=== PATIENT | male | born 1950 | race Caucasian/White ===

== ENCOUNTER 2016-10-27 23:48 | Emergency (ER) | payer BC ==
[~2016-10-27] VITALS: Ht 182.9 cm; Wt 88.6 kg
[~2016-10-27 23:48] MED LIST: AMIT10TA6 PO; ASPEC325 PO; ASPI-427 PO; COEN1CAP37 PO; FOLI800T PO; KRIL1000 PO; PENI-73 PO; PRAV20TA PO
[2016-10-27 23:53] VITALS: TEMP 36.6; Ht 182.9 cm; Wt 88.6 kg
[2016-10-28] MEDS ORDERED: ASPI325T39 PO (00:15)
[2016-10-28] MEDS ORDERED: TRAZ100T29 PO (00:16)
[2016-10-28] MEDS ORDERED: AZITTAB PO (00:16)
[2016-10-28] MEDS ORDERED: LORAZEPAM 2 MG/ML 1 ML VIAL IV STA (00:25)
[2016-10-28] MEDS ORDERED: BENZONATATE 100MG CAP PO ONE ×3 (00:30→03:15)
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
[2016-10-28 00:45] LABS: HEMATOCRIT 41.4 % (42-52); MEAN CELL VOLUME 90.6 fL (80-100); MEAN CORPUSCULAR HEMOGLOBIN 32.8 pg (25-34); MEAN CORPUSCULAR HGB CONC 36.2 g/dl (32-36); MEAN PLATELET VOLUME 9.5 fL (7.4-10.4); PLATELET COUNT 189 K/uL (130-400); RED BLOOD COUNT 4.57 M/uL (4.7-6.1); WHITE BLOOD COUNT 7.11 K/uL (4.8-10.8)
[2016-10-28 01:01] LABS: BUN/CREATININE RATIO 15.6 (10-20); CALCIUM 9.2 mg/dl (8.5-10.1); CREATININE 1.2 mg/dl (0.60-1.40); POTASSIUM 4.5 mmol/L (3.5-5.1)
[2016-10-28] MEDS ORDERED: DiphenhydrAMINE HCL 50 MG/ML VIAL IV STA (01:26)
[2016-10-28] MEDS ORDERED: ATV/1 PO (02:51)
[2016-10-28] MEDS ORDERED: BENZ100C18 PO (02:51)
[2016-10-28] MEDS ORDERED: ATIVAN 1MG HOMEPACK ONE (03:10)
[2016-10-28] MEDS ORDERED: ATIVAN 1MG HOMEPACK PO ONE (03:15)
[2016-10-28 03:21] VITALS: BP 147/88; PULSE 81; O2SAT 98
--- NOTE | 2016-10-28 08:38 | DIAGNOSTIC IMAGING REPORT ---
TWO VIEW CHEST CLINICAL HISTORY: Cough and dyspnea. Anxiety. FINDINGS: PA and lateral chest radiographs are compared to study dated 04/01/2014. The cardiomediastinal silhouette is unremarkable. There is mild atherosclerotic calcification of the thoracic aorta. Chronic interstitial thickening is unchanged. The lungs and pleural spaces are otherwise clear. There is no pneumothorax. The bony thorax appears intact. IMPRESSION: No active disease in the chest. Electronically signed by: Camden Moe M.D. 10/28/2016 8:36 AM
== END 2016-10-28 03:05 | disposition home or self-care (01) ==
LOC: C.EDB 23:49 → C.EDA 10-28 03:05
DX: F41.9 Anxiety disorder, unspecified (principal); Z72.820 Sleep deprivation; R05 Cough; Z79.82 Long term (current) use of aspirin

== ENCOUNTER 2016-10-31 00:43 | Emergency (ER) | payer BC ==
[~2016-10-31] VITALS: Ht 182.9 cm; Wt 84.0 kg
[~2016-10-31 00:43] MED LIST changes: -AMIT10TA6 PO; -ASPEC325 PO; -ASPI-427 PO; +ASPI325T39 PO; +ATV/1 PO; +AZITTAB PO; +BENZ100C18 PO; -COEN1CAP37 PO; -FOLI800T PO; -KRIL1000 PO; +TRAZ100T29 PO
[2016-10-31 00:57] VITALS: TEMP 36.7; Ht 182.9 cm; Wt 84.0 kg
[2016-10-31] MEDS ORDERED: SODIUM CHLORIDE 0.9% 1000ML 1,000 ML IV STA (01:21)
[2016-10-31] MEDS ORDERED: LORAZEPAM 2 MG/ML 1 ML VIAL IV STA ×3 (01:21→02:49)
[2016-10-31] MEDS ORDERED: DiphenhydrAMINE HCL 50 MG/ML VIAL IV STA (01:21)
[2016-10-31 02:21] LABS: THYROID STIMULATING HORMONE 3.4 uIu/ml (0.300-4.500)
[2016-10-31] MEDS ORDERED: HYDR25CA PO (03:48)
--- NOTE | 2016-10-31 03:48 | EMERGENCY ROOM VISIT NOTE ---
History Report prepared by Mesha: Derrick Douglass Under the Supervision of: Dr. Martín Mccracken M.D. First contact with patient: 01:05 Chief Complaint: ANXIETY Stated Complaint: ANXIETY History of Present Illness The patient is a 65 year old male who presents to the Emergency Room with complaints of recurrent anxiety for the past three weeks. The patient feels like he cannot breath. He also feels itchy all over his body and has trouble sleeping. The patient was in the ED four days ago for an anxiety attack that included the same symptoms. The patient has been taking Ativan and Benadryl, which seemed to help last time he was in the ED. The patient had Ativan at 2230 tonight, which didn't help. He did not have Benadryl tonight. The patient denies urinary retention or swelling of the extremities. The patient has tried breathing exercises which do not help with his anxiety. As per the patient's , he paces around the house. She has not experienced itchiness. He does not have a rash. The patient's first anxiety attack was four years ago. He has had them periodically since then. The patient was diagnosed with skin cancer three weeks ago, which he is concerned about and may be contributing to his anxiety. He does not have thyroid disease. He has not had his thyroid levels checked recently. The patient rarely drinks alcohol and does not use drugs. He has never been diagnosed with liver disease. Source of History: patient, spouse/significant other Onset: three weeks Position: other (psyche) Quality: other (anxiety) Timing: other (recurrent) Associated Symptoms: + SOB, No rash, No urinary symptoms Note: + Itchiness. Review of Systems See HPI for pertinent positives & negatives. A total of 10 systems reviewed and were otherwise negative. Past Medical & Surgical Medical Problems: (1) Anxiety Family History Patient reports no known family medical history. Social History Smoking Status: Never Smoker Marital Status: Occupation Status: employed Current/Historical Medications Scheduled Aspirin (Aspirin Ec), 325 MG PO DAILY Azithromycin (Zithromax Z-Lex), 1 PKT PO UD Hydroxyzine Pamoate (Vistaril), 1-2 CAP PO HS Lorazepam (Ativan), 1 MG PO Q6H Penicillin V Potassium (Veetids), 250 MG PO BID Pravastatin Sodium (Pravachol), 20 MG PO DAILY Trazodone Hcl (Trazodone), 200 MG PO HS Allergies Coded Allergies: No Known Allergies (Unverified , 10/31/16) Physical Exam Vital Signs Date Time Temp Pulse Resp B/P Pulse Ox O2 Delivery O2 Flow Rate FiO2 10/31/16 03:53 68 16 146/90 96 10/31/16 02:25 69 20 149/82 96 Room Air 10/31/16 00:57 36.7 85 20 154/91 96 Room Air Physical Exam GENERAL: Patient is anxious appearing in moderate distress. HEENT: No acute trauma, normocephalic atraumatic, mucous membranes moist, no nasal congestion, no scleral icterus. NECK: No stridor, no adenopathy, no meningismus, trachea is midline. LUNGS: No dyspnea. Clear to auscultation and equal bilaterally. No wheeze, no rhonchi. HEART: Regular rate and rhythm. No murmurs, rubs, gallops appreciated. ABDOMEN: Soft, nontender, bowel sounds positive, no masses appreciated, no peritonitis. BACK: No midline tenderness, no CVA tenderness EXTREMITIES: Normal motion all extremities, no cyanosis, no edema. NEUROLOGIC: Alert and oriented, no acute motor or sensory deficits, no focal weakness, cranial nerves grossly intact. SKIN: No rash, no jaundice, no diaphoresis. PSYCH: Denies suicidal or homicidal ideations. Medical Decision & Procedures Laboratory Results Test 10/31/16 01:35 Thyroid Stimulating Hormone (TSH) 3.400 uIu/ml (0.300-4.500) Free Thyroxine 1.25 ng/dl (0.80-1.60) Laboratory results as reviewed by me. Medications Administered Medications (Trade) Dose Ordered Sig/Rafi Route Start Time Stop Time Status Last Admin Dose Admin Sodium Chloride (Nss 1000ml) 1,000 ml @ 999 mls/hr Q1H1M STAT IV 10/31/16 01:21 10/31/16 02:21 DC 10/31/16 01:38 999 MLS/HR Diphenhydramine HCl (Benadryl Inj) 50 mg NOW STAT IV 10/31/16 01:21 10/31/16 01:22 DC 10/31/16 01:38 50 MG Lorazepam (Ativan Inj) 1 mg NOW STAT IV 10/31/16 01:21 10/31/16 01:22 DC 10/31/16 01:38 1 MG Lorazepam (Ativan Inj) 1 mg NOW STAT IV 10/31/16 02:14 10/31/16 02:15 DC 10/31/16 02:22 1 MG Lorazepam (Ativan Inj) 1 mg NOW STAT IV 10/31/16 02:49 10/31/16 02:50 DC 10/31/16 02:57 1 MG ED Course 0106: The patient was evaluated in room B6. A complete history and physical exam was performed. 0121: Ativan 1 mg IV, Benadryl 50 mg IV, NSS 1000 ml @ 999 mls/hr. 0214: Ativan 1 mg IV. 0249: Ativan 1 mg IV. 0320: The patient is still shaking. 0350: Reevaluated the patient. Discussed results and discharge instructions: He verbalized understanding and agreement. The patient is ready for discharge. Medical Decision Differential: Mood Disorder, Overdose, Infectious, Electrolyte Abnormality, Cardiac, Hepatic, Endocrine, Toxicologic, Neurologic, amongst other pathologies entertained. 65 yr old male arrives for evaluation of acute anxiety. Ongoing for several weeks and makes clear that this is chronic issue just worsened because not working as much and just had left ear skin cancer removed. He has clearly been on vast number of different medications for this over the years. Given Ativan/ Benadryl as previously had received these a few days earlier though this time with akathisia of his legs (which was already going on prior to medications though worsened). Likely Benadryl reaction. Given several rounds of ativan with patient sleeping comfortably but when awoken and asked how he feels legs start shaking again. While he seems upset by this I do not feel there is really much further treatment as he has had large amount of ativan and falls asleep very easily even while talking to his . Extensive labs done a few days ago and TSH today unremarkable. This seems very much psychiatric in nature. Has PCP appointment later this morning. Case management is trying to help set up psych evaluation. Impression Primary Impression: Anxiety Additional Impression: Akathisia Scribe Attestation The scribe's documentation has been prepared under my direction and personally reviewed by me in its entirety. I confirm that the note above accurately reflects all work, treatment, procedures, and medical decision making performed by me. Departure Information Dispostion Home / Self-Care Prescriptions Hydroxyzine Pamoate (VISTARIL) 25 Mg Cap 1-2 CAP PO HS, #20 CAP 1 Refill Prov: Martín Mccracken M.D. 10/31/16 Referrals No Doctor, Assigned (PCP) Forms HOME CARE DOCUMENTATION FORM, IMPORTANT VISIT INFORMATION Patient Instructions A Signature Page, Anxiety Body Response, [facility]
[2016-10-31 03:53] VITALS: BP 146/90; PULSE 68; O2SAT 96
== END 2016-10-31 03:52 | disposition home or self-care (01) ==
LOC: C.EDB 00:43
DX: F41.9 Anxiety disorder, unspecified (principal); G25.71 Drug induced akathisia; R06.02 Shortness of breath; Z79.82 Long term (current) use of aspirin; Z79.899 Other long term (current) drug therapy

== ENCOUNTER → 2016-11-16 | Outpatient (CLI) | payer BC ==
[~2016-11-16] MED LIST changes: -ATV/1 PO; -BENZ100C18 PO; +HYDR25CA PO
== END | disposition home or self-care (01) ==
LOC: C.CPL 08:18
PROVIDERS: ATTEND Psychiatry & Neurology Psychiatry
DX: Z79.899 Other long term (current) drug therapy (principal)

== ENCOUNTER → 2017-01-25 | Outpatient (CLI) | payer BC ==
[2017-01-25 12:52] LABS: ALT/SGPT 24 U/L (12-78); AST/SGOT 19 U/L (15-37); BLOOD UREA NITROGEN 13 mg/dl (7-18); BUN/CREATININE RATIO 10.7 (10-20); CALCIUM 8.9 mg/dl (8.5-10.1); CARBON DIOXIDE 31 mmol/L (21-32); CHLORIDE 107 mmol/L (98-107); CHOLESTEROL 143 mg/dl (0-200); GLUCOSE 92 mg/dl (70-99); POTASSIUM 4.4 mmol/L (3.5-5.1); SODIUM 140 mmol/L (136-145)
[2017-01-25 12:57] LABS: ALB/GLOB RATIO 1.1 (0.9-2); ALKALINE PHOSPHATASE 59 U/L (45-117); CHOLESTEROL/HDL RATIO 3.3; HDL CHOLESTEROL 43 mg/dl; LDL CHOLESTEROL CALCULATED 77 mg/dl; TRIGLYCERIDES 116 mg/dl (0-150); VERY LOW DENSITY LIPOPROT CALC 23 mg/dl
== END | disposition home or self-care (01) ==
LOC: C.LABBFT 09:02
PROVIDERS: ATTEND Nurse Practitioner
DX: E55.9 Vitamin D deficiency, unspecified (principal); E78.00 Pure hypercholesterolemia, unspecified; Z12.5 Encounter for screening for malignant neoplasm of prostate

== ENCOUNTER → 2017-08-10 | Outpatient (CLI) | payer BC ==
[2017-08-10 13:23] LABS: ALT/SGPT 24 U/L (12-78); AST/SGOT 18 U/L (15-37); BLOOD UREA NITROGEN 17 mg/dl (7-18); BUN/CREATININE RATIO 15.3 (10-20); CALCIUM 8.9 mg/dl (8.5-10.1); CARBON DIOXIDE 27 mmol/L (21-32); CHLORIDE 107 mmol/L (98-107); CHOLESTEROL 150 mg/dl (0-200); GLUCOSE 94 mg/dl (70-99); POTASSIUM 4.5 mmol/L (3.5-5.1); SODIUM 140 mmol/L (136-145); TRIGLYCERIDES 90 mg/dl (0-150); VERY LOW DENSITY LIPOPROT CALC 18 mg/dl
[2017-08-10 13:31] LABS: ESTIMATED AVERAGE GLUCOSE 91 mg/dl; HA1C FLAG Normal (Normal)
[2017-08-10 14:03] LABS: ALB/GLOB RATIO 1.1 (0.9-2); ALKALINE PHOSPHATASE 66 U/L (45-117); CHOLESTEROL/HDL RATIO 3.5; HDL CHOLESTEROL 43 mg/dl; LDL CHOLESTEROL CALCULATED 89 mg/dl; THYROID STIMULATING HORMONE 0.966 uIu/ml (0.300-4.500)
== END | disposition home or self-care (01) ==
LOC: C.LABBC 10:35
PROVIDERS: ATTEND Internal Medicine
DX: Z00.00 Encounter for general adult medical examination without abnormal findings (principal); R73.01 Impaired fasting glucose; E78.00 Pure hypercholesterolemia, unspecified; E55.9 Vitamin D deficiency, unspecified; C44.91 Basal cell carcinoma of skin, unspecified

== ENCOUNTER → 2018-02-18 | Outpatient (CLI) | payer BC ==
[2018-02-18 13:41] LABS: ALBUMIN 3.5 gm/dl (3.4-5.0); ALT/SGPT 25 U/L (12-78); AST/SGOT 22 U/L (15-37); BLOOD UREA NITROGEN 20 mg/dl (7-18); CALCIUM 8.6 mg/dl (8.5-10.1); CARBON DIOXIDE 27 mmol/L (21-32); CHOLESTEROL 152 mg/dl (0-200); GLUCOSE 95 mg/dl (70-99); POTASSIUM 4.2 mmol/L (3.5-5.1); SODIUM 139 mmol/L (136-145)
[2018-02-18 13:46] LABS: ALKALINE PHOSPHATASE 75 U/L (45-117); LDL CHOLESTEROL CALCULATED 97 mg/dl; TOTAL PROTEIN 6.8 gm/dl (6.4-8.2)
== END | disposition home or self-care (01) ==
LOC: C.LABPBG 07:39
PROVIDERS: ATTEND Internal Medicine
DX: Z00.00 Encounter for general adult medical examination without abnormal findings (principal); R73.01 Impaired fasting glucose; E78.00 Pure hypercholesterolemia, unspecified; Z12.5 Encounter for screening for malignant neoplasm of prostate

== ENCOUNTER 2018-11-17 12:49 | Observation (INO) ==
[2018-11-17] MEDS ORDERED: SODIUM CHLORIDE 0.9% 1000ML 500 ML IV ONE (13:10)
[2018-11-17] MEDS ORDERED: NITROGLYCERIN 2% OINTMENT 30GM TUBE EXT ONE (13:10)
[2018-11-17] MEDS ORDERED: ASPIRIN 81 MG CHEW PO STA (13:10)
--- NOTE | 2018-11-17 13:17 | Emergency Department Note ---
History of Present Illness General Chief complaint: Chest Pain Stated complaint: CHEST PAIN,SOB,DIZZY Time Seen by Provider: 11/17/18 12:58 History of Present Illness Maximum Pain Intensity: 2 This patient is a 67-year-old male who presents to the emergency department with complaints of chest pain that started yesterday while he was shoveling snow. He also felt short of breath and dizzy. The patient went inside and sat down, which helped relieve his symptoms. He reports being very active at work. Today at work, he was doing steps when he also became dizzy and short of breath. He currently is experiencing dull chest pain that he rates a 2/10. He has not taken anything at home for the discomfort. He denies any known history of personal cardiac disease. He has had stress tests in the past. He follows with Dr. Waller. No recent illnesses. No recent long travel. Home Medications Home Medications Medication Instructions Recorded Confirmed Type aspirin 325 mg PO HS 11/17/18 11/17/18 History cholecalciferol (vitamin D3) 5,000 unit PO QAM 11/17/18 11/17/18 History [Vitamin D3] fluoxetine 20 mg PO QAM 11/17/18 11/17/18 History penicillin V potassium 250 mg PO BID 11/17/18 11/17/18 History pravastatin 20 mg PO HS 11/17/18 11/17/18 History trazodone 200 mg PO HS 11/17/18 11/17/18 History Allergies Allergy/AdvReac Type Severity Reaction Status Date / Time No Known Allergies Allergy Unverified 11/17/18 15:04 Past Med/Surg History Medical History Depression History of rheumatic fever as a child Hyperlipidemia Insomnia Lower urinary tract symptoms (LUTS) Rosacea Vitamin D deficiency Surgical History Status post total right knee replacement Family History Mother Colon cancer Father CAD (coronary atherosclerotic disease) S/P CABG (coronary artery bypass graft) Prostate cancer Uncle CAD (coronary atherosclerotic disease) S/P CABG (coronary artery bypass graft) Social History Current Living Situation: Spouse Other Information That Helps Us Care for You: No Feels Safe at Home: Yes Safety Concerns: Feels Safe At This Time Smoking Status: Never smoker Do You Dip or Chew Tobacco: No Hx Alcohol Use: Yes Alcohol Intake Frequency: holidays/special occasions only Hx Substance Use: No Beliefs That Will Affect Care: None Preferred Language: French Communication Ability: Effective Hydrogeologist Required: No Review of Systems A total of 10 systems reviewed and were otherwise negative Physical Exam Vital Signs Vital Signs - 24 hr 11/17/18 12:55 11/17/18 13:33 11/17/18 13:37 Temperature 36.4 C L Temperature Source Oral Sepsis Recent Fever Within 48 Hours No Sepsis Action Taken by Nursing No Action Required Pulse Rate 18 L 57 L 62 Pulse Rate [Apical] 58 L Pulse Rhythm Regular Pulse Rhythm [Apical] Regular Pulse Strength Normal Pulse Strength [Apical] Normal Respiratory Rate 20 13 18 Respiratory Effort / Characteristics Non-Labored Non-Labored Spontaneous Respiratory Depth Normal Normal Respiratory Pattern Regular Blood Pressure 122/72 130/72 Blood Pressure [Left Arm] 130/72 Blood Pressure [Right Arm] Blood Pressure Mean 88 91 Blood Pressure Mean [Left Arm] 91 Blood Pressure Mean [Right Arm] Blood Pressure Position [Left Arm] Lying Blood Pressure Position [Right Arm] Pulse Oximetry 100 98 100 Oxygen Delivery Method Room Air Room Air 11/17/18 13:40 11/17/18 13:50 11/17/18 14:00 Temperature Temperature Source Sepsis Recent Fever Within 48 Hours Sepsis Action Taken by Nursing Pulse Rate 58 L 57 L 62 Pulse Rate [Apical] Pulse Rhythm Pulse Rhythm [Apical] Pulse Strength Pulse Strength [Apical] Respiratory Rate 17 13 15 Respiratory Effort / Characteristics Respiratory Depth Respiratory Pattern Blood Pressure 119/71 Blood Pressure [Left Arm] Blood Pressure [Right Arm] Blood Pressure Mean 87 Blood Pressure Mean [Left Arm] Blood Pressure Mean [Right Arm] Blood Pressure Position [Left Arm] Blood Pressure Position [Right Arm] Pulse Oximetry 100 99 100 Oxygen Delivery Method 11/17/18 14:10 11/17/18 14:20 11/17/18 14:28 Temperature Temperature Source Sepsis Recent Fever Within 48 Hours Sepsis Action Taken by Nursing Pulse Rate 59 L 56 L 59 L Pulse Rate [Apical] Pulse Rhythm Pulse Rhythm [Apical] Pulse Strength Pulse Strength [Apical] Respiratory Rate 17 18 12 Respiratory Effort / Characteristics Respiratory Depth Respiratory Pattern Blood Pressure 134/84 Blood Pressure [Left Arm] Blood Pressure [Right Arm] Blood Pressure Mean 100 Blood Pressure Mean [Left Arm] Blood Pressure Mean [Right Arm] Blood Pressure Position [Left Arm] Blood Pressure Position [Right Arm] Pulse Oximetry 98 99 98 Oxygen Delivery Method 11/17/18 14:29 11/17/18 14:30 11/17/18 14:40 Temperature Temperature Source Sepsis Recent Fever Within 48 Hours Sepsis Action Taken by Nursing Pulse Rate 66 61 Pulse Rate [Apical] 60 Pulse Rhythm Pulse Rhythm [Apical] Pulse Strength Pulse Strength [Apical] Respiratory Rate 16 20 19 Respiratory Effort / Characteristics Respiratory Depth Respiratory Pattern Blood Pressure Blood Pressure [Left Arm] 134/84 Blood Pressure [Right Arm] Blood Pressure Mean Blood Pressure Mean [Left Arm] 100 Blood Pressure Mean [Right Arm] Blood Pressure Position [Left Arm] Blood Pressure Position [Right Arm] Pulse Oximetry 99 100 99 Oxygen Delivery Method 11/17/18 14:50 11/17/18 15:00 11/17/18 15:10 Temperature Temperature Source Sepsis Recent Fever Within 48 Hours Sepsis Action Taken by Nursing Pulse Rate 61 62 59 L Pulse Rate [Apical] Pulse Rhythm Pulse Rhythm [Apical] Pulse Strength Pulse Strength [Apical] Respiratory Rate 18 18 17 Respiratory Effort / Characteristics Respiratory Depth Respiratory Pattern Blood Pressure 125/76 Blood Pressure [Left Arm] Blood Pressure [Right Arm] Blood Pressure Mean 92 Blood Pressure Mean [Left Arm] Blood Pressure Mean [Right Arm] Blood Pressure Position [Left Arm] Blood Pressure Position [Right Arm] Pulse Oximetry 99 98 99 Oxygen Delivery Method 11/17/18 15:20 11/17/18 15:25 11/17/18 15:30 Temperature Temperature Source Sepsis Recent Fever Within 48 Hours Sepsis Action Taken by Nursing Pulse Rate 60 62 Pulse Rate [Apical] Pulse Rhythm Pulse Rhythm [Apical] Pulse Strength Pulse Strength [Apical] Respiratory Rate 20 15 Respiratory Effort / Characteristics Non-Labored Spontaneous Respiratory Depth Normal Respiratory Pattern Regular Blood Pressure 117/75 Blood Pressure [Left Arm] Blood Pressure [Right Arm] Blood Pressure Mean 89 Blood Pressure Mean [Left Arm] Blood Pressure Mean [Right Arm] Blood Pressure Position [Left Arm] Blood Pressure Position [Right Arm] Pulse Oximetry 99 Oxygen Delivery Method Room Air 11/17/18 16:00 11/17/18 16:42 11/17/18 19:28 Temperature 36.6 C 36.6 C Temperature Source Oral Oral Sepsis Recent Fever Within 48 Hours Sepsis Action Taken by Nursing Pulse Rate 58 L Pulse Rate [Apical] 99 H 58 L Pulse Rhythm Pulse Rhythm [Apical] Regular Pulse Strength Pulse Strength [Apical] Normal Respiratory Rate 23 17 18 Respiratory Effort / Characteristics Non-Labored Respiratory Depth Normal Respiratory Pattern Regular Blood Pressure 127/85 Blood Pressure [Left Arm] Blood Pressure [Right Arm] 113/76 102/57 L Blood Pressure Mean 99 Blood Pressure Mean [Left Arm] Blood Pressure Mean [Right Arm] 88 72 Blood Pressure Position [Left Arm] Blood Pressure Position [Right Arm] Sitting Lying Pulse Oximetry 99 98 94 Oxygen Delivery Method Room Air Room Air Constitutional WD/WN, vitals as above Eyes EOM intact bilaterally ENMT external ear and nose normal, oropharynx normal Neck trachea midline Respiratory normal respiratory effort, lungs clear to auscultation Cardiovascular RRR, no murmur, no edema No carotid bruit bilaterally Gastrointestinal (Abdomen) normal bowel sounds, soft, nontender, no hepatosplenomegaly Musculoskeletal no cyanosis or clubbing, extremities motor strength 5/5 Skin no rashes, warm and dry Neurologic Alert and oriented x3. No focal motor deficits. Psychiatric Acting appropriately Course Patient was seen and examined Vital signs including blood pressure were reviewed medications list was verified with patient Labs were obtained, and a saline lock was established And EKG was performed and reviewed. The patient was put on a monitor. He was given nitroglycerin paste 1 inch and an aspirin to 324 mg. Imaging was performed and reviewed Upon reassessment, the patient was resting comfortably. His chest pain was unchanged. He was complaining of a headache. He was ordered Tylenol 1 g p.o. I thoroughly reviewed the results with the patient and the patient's . They voiced understanding. We also had a discussion regarding disposition. They were comfortable to proceed with hospitalist consult. The case was discussed with case management and subsequently the [facility] hospitalist service. They kindly agreed to evaluate the patient for possible inpatient management. The patient remained stable while in the emergency department. Administered Medications Acetaminophen (Tylenol) 650 mg PO Q4H PRN PRN Reason: Pain or Fever Stop: 12/17/18 16:34 Last Admin: 11/17/18 19:21 Dose: 650 mg Penicillin V Potassium (Veetids) 250 mg PO BID CORY Stop: 12/17/18 20:59 Last Admin: 11/17/18 20:30 Dose: 250 mg Pravastatin Sodium (Pravachol) 20 mg PO HS CORY Stop: 12/17/18 20:59 Last Admin: 11/17/18 20:30 Dose: 20 mg Trazodone HCl (Desyrel) 200 mg PO HS CORY Stop: 12/17/18 20:59 Last Admin: 11/17/18 20:29 Dose: 200 mg Discontinued Medications Acetaminophen (Tylenol) 1,000 mg PO NOW STA Stop: 11/17/18 14:03 Last Admin: 11/17/18 14:29 Dose: 1,000 mg Aspirin (Aspirin Chew) 324 mg PO NOW STA Stop: 11/17/18 13:11 Last Admin: 11/17/18 13:33 Dose: 324 mg Sodium Chloride (Nss 1000ml) 500 mls @ 999 mls/hr IV .Q31M ONE Stop: 11/17/18 13:40 Last Infusion: 11/17/18 14:03 Dose: 0 mls/hr Admin: 11/17/18 13:33 Dose: 999 mls/hr Nitroglycerin (Nitro-Bid 2%) 1 inch EXT NOW ONE Stop: 11/17/18 13:11 Last Admin: 11/17/18 13:33 Dose: 1 inch Medical Decision Making Medical Records Attestation: I reviewed the patient's medical records. Home Medications Current Medication List: was personally reviewed by me Laboratory Data Attestation: I reviewed the patient's lab results. Result diagrams: 11/17/18 13:20 11/17/18 13:20 Lab Results 11/17/18 11/17/18 11/17/18 Range/Units 13:20 13:20 13:20 WBC 8.40 (4.8-10.8) K/uL RBC 4.25 L (4.7-6.1) M/uL Hgb 14.2 (14.0-18.0) g/dL Hct 38.9 L (42-52) % MCV 91.5 (80-100) fL MCH 33.4 (25-34) pg MCHC 36.5 H (32-36) g/dL RDW Std Deviation 43.9 (36.4-46.3) fL RDW Coeff of Renuka 13.0 (11.5-14.5) % Plt Count 172 (130-400) K/uL MPV 9.5 (7.4-10.4) fL Immature Gran % (Auto) 0.1 % Neut % (Auto) 80.0 % Lymph % (Auto) 14.9 % [place] % (Auto) 4.6 % Eos % (Auto) 0.2 % Baso % (Auto) 0.2 % Immature Gran # (Auto) 0.01 (0.00-0.02) K/uL Neut # (Auto) 6.71 H (1.4-6.5) K/uL Lymph # (Auto) 1.25 (1.2-3.4) K/uL [place] # (Auto) 0.39 (0.11-0.59) K/uL Eos # (Auto) 0.02 (0-0.5) K/uL Baso # (Auto) 0.02 (0-0.2) K/uL PT 10.8 (9.0-12.0) Seconds INR 1.1 (0.9-1.1) APTT 26.6 (21.0-31.0) Seconds PTT Ratio 1.0 Sodium 135 L (136-145) mmol/L Potassium 4.6 (3.5-5.1) mmol/L Chloride 103 (98-107) mmol/L Carbon Dioxide 27 (21-32) mmol/L Anion Gap 6.0 (3-11) BUN 18 (7-18) mg/dl Creatinine 1.24 (0.6-1.4) mg/dl Est Cr Clr Drug Dosing 63.1 ml/min Est GFR ( Amer) 70.3 Est GFR (Non-Af Amer) 60.6 BUN/Creatinine Ratio 14.6 (10-20) Glucose 98 (70-99) mg/dl Calcium 9.3 (8.5-10.1) mg/dl Total Bilirubin 0.7 (0.2-1) mg/dl AST 18 (15-37) U/L ALT 28 (12-78) U/L Alkaline Phosphatase 54 (45-117) U/L POC Troponin I (0-0.045) ng/ml Troponin I (0-0.045) ng/ml Total Protein 7.2 (6.4-8.2) gm/dl Albumin 3.8 (3.4-5.0) gm/dl Globulin 3.4 (2.5-4.0) gm/dl Albumin/Globulin Ratio 1.1 (0.9-2) 11/17/18 11/17/18 Range/Units 13:24 18:55 WBC (4.8-10.8) K/uL RBC (4.7-6.1) M/uL Hgb (14.0-18.0) g/dL Hct (42-52) % MCV (80-100) fL MCH (25-34) pg MCHC (32-36) g/dL RDW Std Deviation (36.4-46.3) fL RDW Coeff of Renuka (11.5-14.5) % Plt Count (130-400) K/uL MPV (7.4-10.4) fL Immature Gran % (Auto) % Neut % (Auto) % Lymph % (Auto) % [place] % (Auto) % Eos % (Auto) % Baso % (Auto) % Immature Gran # (Auto) (0.00-0.02) K/uL Neut # (Auto) (1.4-6.5) K/uL Lymph # (Auto) (1.2-3.4) K/uL [place] # (Auto) (0.11-0.59) K/uL Eos # (Auto) (0-0.5) K/uL Baso # (Auto) (0-0.2) K/uL PT (9.0-12.0) Seconds INR (0.9-1.1) APTT (21.0-31.0) Seconds PTT Ratio Sodium (136-145) mmol/L Potassium (3.5-5.1) mmol/L Chloride (98-107) mmol/L Carbon Dioxide (21-32) mmol/L Anion Gap (3-11) BUN (7-18) mg/dl Creatinine (0.6-1.4) mg/dl Est Cr Clr Drug Dosing ml/min Est GFR ( Amer) Est GFR (Non-Af Amer) BUN/Creatinine Ratio (10-20) Glucose (70-99) mg/dl Calcium (8.5-10.1) mg/dl Total Bilirubin (0.2-1) mg/dl AST (15-37) U/L ALT (12-78) U/L Alkaline Phosphatase (45-117) U/L POC Troponin I < 0.03 (0-0.045) ng/ml Troponin I < 0.015 (0-0.045) ng/ml Total Protein (6.4-8.2) gm/dl Albumin (3.4-5.0) gm/dl Globulin (2.5-4.0) gm/dl Albumin/Globulin Ratio (0.9-2) Imaging Data Attestation: I personally reviewed and interpreted this imaging study as follows : Radiologist's Impression: Chest x-ray IMPRESSION: 1. No acute cardiopulmonary disease. Electronically signed by: Saeid Watson M.D. 11/17/2018 1:29 PM Dictated: 11/17/18 1328 Transcribed: 11/17/18 1328 ECG Data Rate (beats per minute): 57 Rhythm: sinus bradycardia Findings: + RBBB Comparison ECG Date: from (11/16/2016) Change: no significant change Blood Pressure Blood Pressure Findings: Normal blood pressure MDM Narrative Differential diagnosis: Acute myocardial infarction, cardiac arrhythmia, anemia , thyroid abnormality, pneumothorax, pneumonia, bronchitis, pericarditis, electrolyte imbalance This patient is a 67-year-old male who presents to the emergency department complaining of exertional chest pain that started yesterday while shoveling snow. On exam, his vital signs were stable. I could not reproduce any chest pain with palpation. His EKG shows normal sinus rhythm with a right bundle branch block. No signs of acute ischemia or infarction. This EKG was compared to a prior EKG from 2017. It is unchanged. Initial troponin in the emergency department is negative; however, given the patient's exertional symptoms and family history, I do not feel comfortable discharging the patient home. The case was discussed with the [facility] hospitalist group who kindly agreed to evaluate the patient for possible inpatient management. Impression & Plan Exertional chest pain Discharge Plan Visit Data *Final* Discharge Date/Time: 11/17/18 16:34 Chief Complaint: Chest Pain Stated Complaint: CHEST PAIN,SOB,DIZZY ED Provider: Vicente Lynn ED Midlevel Provider: Azra Norman Discharge Problem: Exertional chest pain Patient Disposition: Admitted As Inpatient Condition: Fair Discharge Instructions Interventions: ED Discharge Assessment Last Done: 11/17/18 16:34
[2018-11-17 13:30] LABS: Basophils # (auto) 0.02 K/uL (0-0.2); Basophils % (auto) 0.2 %; Eosinophils # (auto) 0.02 K/uL (0-0.5); Eosinophils % (auto) 0.2 %; Hematocrit (blood only) 38.9 % (42-52); Hemoglobin 14.2 g/dL (14.0-18.0); Immature Granulocytes # (auto) 0.01 K/uL (0.00-0.02); Immature Granulocytes % (auto) 0.1 %; Lymphocytes # (auto) 1.25 K/uL (1.2-3.4); Lymphocytes % (auto) 14.9 %; Mean Corpuscular Hgb Conc 36.5 g/dL (32-36); Mean Corpuscular Volume 91.5 fL (80-100); Mean Platelet Volume 9.5 fL (7.4-10.4); Monocytes # (auto) 0.39 K/uL (0.11-0.59); Monocytes % (auto) 4.6 %; Neutrophils # (auto) 6.71 K/uL (1.4-6.5); Platelet Count 172 K/uL (130-400); RDW Standard Deviation 43.9 fL (36.4-46.3); Red Blood Count 4.25 M/uL (4.7-6.1)
--- NOTE | 2018-11-17 13:30 | XRay Report ---
XR chest 1V portable CLINICAL HISTORY: 67 years-old Male presenting with syncope. TECHNIQUE: Portable upright AP view of the chest was obtained. COMPARISON: 10/28/2016. FINDINGS: Atherosclerosis of the aortic arch. Cardiac silhouette top normal in size. Lungs and pleural spaces c lear. Degenerative changes of the thoracic spine. Upper abdomen normal. IMPRESSION: 1. No acute cardiopulmonary disease. Electronically signed by: Saeid Watson M.D. 11/17/2018 1:29 PM
[2018-11-17 13:45] LABS: Est GFR (African American) 70.3; Potassium 4.6 mmol/L (3.5-5.1)
[2018-11-17 13:46] LABS: Albumin Level 3.8 gm/dl (3.4-5.0); BUN Creatinine Ratio 14.6 (10-20); Calcium 9.3 mg/dl (8.5-10.1); Creatinine Clr Calc Pharmacy 63.1 ml/min; Est GFR (Non-African American) 60.6
[2018-11-17 13:49] LABS: Albumin Globulin Ratio 1.1 (0.9-2); Bilirubin,Total 0.7 mg/dl (0.2-1); Globulin 3.4 gm/dl (2.5-4.0); Total Protein 7.2 gm/dl (6.4-8.2)
[2018-11-17] MEDS ORDERED: ACETAMINOPHEN 500 MG TAB PO STA (14:02)
[2018-11-17 14:03] LABS: INR 1.1 (0.9-1.1); Partial Thromboplastin Time 26.6 Seconds (21.0-31.0); Prothrombin Time 10.8 Seconds (9.0-12.0)
--- NOTE | 2018-11-17 16:21 | History & Physical Report ---
Date of Service November 17, 2018 Assessment & Plan (1) Exertional chest pain: - Experiencing CP with exertion with [place]ing [place] - associated dypnea and lightheadedness - Risk factors are relatively few - A1c is 5, no HTN, no tobacco/cigarette use, very active, cholesterol controlled - does have a significant FMHx of CAD/CABG - EKG with sinus earl and chronic RBBB and appears similar to EKG from 2017 - no ischemic findings - Admit to telemetry for rhythm monitoring and serial troponins - currently negative - Stress echo in the AM if negative troponins -- Last stress test was in 2010 which he reports is was normal and thinks this was done for CP but cannot fully remember - Continue home ASA 325 mg HS - Does follow with Dr. 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 Srivastava - [phone] and family would like him updated if able. Dr. Bonilla did give update to him this evening Present on Admission?: Yes (2) Mixed hyperlipidemia: - Recent assessment of lipid panel and will not repeat - WNL - Continue Pravastatin 20 mg HS Present on Admission?: Yes (3) History of rheumatic fever as a child: - Reports no long-term heart effects - Continue prophylactic treatment with penicillin V 250 mg BID Present on Admission?: Yes (4) Depression: - Follows with Dr. Noriega - Fluoxetine 20 mg daily Present on Admission?: Yes (5) Insomnia: - Trazodone 200 mg HS Present on Admission?: Yes (6) Vitamin D deficiency: - Recent assessment was low - continue Vitamin D3 5000 units daily Present on Admission?: Yes History of Present Illness Chief Complaint: Chest Pain Primary Care Provider: Stephanie Onofre MD Mr. Garcia is a 67 y/o male with PMHx of Hyperlipidemia, Depression, Childhood Rheumatic Fever, and Vitamin D Deficiency who presents to the ED c/o chest pain. Patient reports this started yesterday while shoveling snow. He developed a centralized chest pain with radiation into the L shoulder and down the arm. This was associated with dyspnea and dizziness. He states he then stopped shoveling and went in the house to rest. States the pain gradually decreased and resolved within an hour. He reports feeling fine the rest of the evening. Today, he was ambulating the stairs [facility] when he developed dizziness and shortness of breath upon getting towards the top steps. He states he would have twinges of chest pain during this time and this too would resolve upon resting. Currently he is not experiencing any chest pain while in the ED. EKG with sinus bradycardia with RBBB and an age indeterminant septal infarct which EKG very similar to one in [employer] from 2017. No ischemic findings noted and initial troponin negative. Per medical record it is noted that he had hyperglycemia however recent A1c is 5. Lipid panel recently checked and WNL and currently on statin therapy. He appears to have good blood pressure control and is very active. No cigarette/tobacco use, minimal glass of wine drinker, no illegal drugs. He does appear to have minimal risk factors however story very consistent with a possible anginal pain. He does report a significant FMHx of cardiac disease to include his father and uncles with CAD requiring CABG. Otherwise, states he has been in his normal state of health only reporting a respiratory illness around [place] requiring a Zpak but no other recent or current illnesses. Allergies Allergy/AdvReac Type Severity Reaction Status Date / Time No Known Allergies Allergy Unverified 11/17/18 15:04 Home Medications Home Medications Medication Instructions Recorded Confirmed Type aspirin 325 mg PO HS 11/17/18 11/17/18 History cholecalciferol (vitamin D3) 5,000 unit PO QAM 11/17/18 11/17/18 History [Vitamin D3] fluoxetine 20 mg PO QAM 11/17/18 11/17/18 History penicillin V potassium 250 mg PO BID 11/17/18 11/17/18 History pravastatin 20 mg PO HS 11/17/18 11/17/18 History trazodone 200 mg PO HS 11/17/18 11/17/18 History Past Med/Surg History Medical History Depression History of rheumatic fever as a child Hyperlipidemia Insomnia Lower urinary tract symptoms (LUTS) Rosacea Vitamin D deficiency Surgical History Status post total right knee replacement Family History Mother Colon cancer Father CAD (coronary atherosclerotic disease) S/P CABG (coronary artery bypass graft) Prostate cancer Uncle CAD (coronary atherosclerotic disease) S/P CABG (coronary artery bypass graft) Social History Current Living Situation: Spouse Other Information That Helps Us Care for You: No Feels Safe at Home: Yes Safety Concerns: Feels Safe At This Time Smoking Status: Never smoker Do You Dip or Chew Tobacco: No Hx Alcohol Use: Yes Alcohol Intake Frequency: holidays/special occasions only Hx Substance Use: No Beliefs That Will Affect Care: None Preferred Language: Brazilian Communication Ability: Effective Foreclosure Field Inspector Required: No Review of Systems Constitutional: no fever and no chills Eyes: no worsening vision Ear, Nose, Mouth, Throat: no nasal congestion, no dry mouth, no sore throat and no hoarseness Respiratory: + dyspnea on exertion; no cough, no chest congestion, no dyspnea and no sputum production Cardiovascular: + chest pain, + radiating jaw, neck or arm pain, + dyspnea on exertion and + lightheadedness; no chest pain at rest, no syncope, no edema and no calf pain Gastrointestinal: no abdominal pain, no nausea, no vomiting, no constipation and no diarrhea/loose stools Genitourinary (Male): no dysuria Musculoskeletal: no back pain, no neck pain and no body aches Integumentary: no rash Physical Exam 2 Vital Signs (Past 24 Hours): Last Vital Signs Temp 36.4 C L 11/17/18 12:55 Pulse 58 L 11/17/18 16:00 Resp 23 11/17/18 16:00 BP 127/85 11/17/18 16:00 Pulse Ox 99 11/17/18 16:00 Constitutional: well developed, well nourished and + thin; no acute distress and not ill appearing Eyes: + anicteric sclerae ENMT: Ears: no hearing impairment Throat: uvula midline Neck: trachea midline Respiratory: normal respiratory effort, lungs clear to auscultation Cardiovascular: Rate/Rhythm: regular rate and regular rhythm Heart Sounds: no murmur Extremities: no edema Chest (Breasts): Additional Comments: No reproducible chest pain in the anterior chest wall or to palpation of the shoulders Gastrointestinal (Abdomen): Inspection/Auscultation: normal bowel sounds Percussion/Palpation: abdomen soft; abdomen nontender Musculoskeletal: Head/Neck/Chest: normocephalic, head atraumatic and neck supple Extremities: no cyanosis and no clubbing Skin: no rashes, warm and dry Neurologic: moves all extremities Psychiatric: A+Ox3, euthymic affect Code Status & VTE Plan Code Status FULL RESUSCITATION Supervising Physician Co-Signing Physician Notes Attending note: patient seen and examined on 11/17/18 with Zunilda Soares PA-C. Toribio agree with her HPI, history, exam, ROS and A/P. I personally reviewed the labs and imaging findings. Patient is 68 male who presents with convincing story for exertional angina. No history of chest pain prior to 36 hours prior to presentation. Experienced chest pressure while shoveling snow. The pain radiated to left arm. It was so intense that he stopped working, went inside, the pain subsided gradually. He also experienced some shortness of breath and light headedness. The next day he had similar symptoms when walking up a flight of stairs at work. Risk factors for CAD include dyslipidemia and strong family history with his father and uncles all having CAD. Initial EKG showed a RBBB that was old and no ischemic changes. Of note, he was not experiencing chest pain in the ED. CXR, BMP, CBC all normal. Troponin negative. - Exertional chest pain/pressure, angina: will admit to tele, cycle troponins, repeat EKG consult cardiology to determine stress test vs heart catheterization continue aspirin, Pravastatin
[2018-11-17] MEDS ORDERED: POLYETHYLENE (MIRALAX) 17 GM PACK PO PRN (16:35)
[2018-11-17] MEDS ORDERED: MAGNESIUM HYDROXIDE SUSP 30 ML UDC PO PRN (16:35)
[2018-11-17] MEDS ORDERED: ACETAMINOPHEN 325 MG TAB PO PRN (16:35)
[2018-11-17] MEDS ORDERED: ONDANSETRON INJ 2 MG/ML 2 ML VIAL IV PRN (16:35)
[2018-11-17] MEDS ORDERED: ALUMINUM/MAGNESIUM SUSP 30 ML UDC PO PRN (16:35)
[2018-11-17] MEDS ORDERED: NITROGLYCERIN SL 0.4 MG/TAB TAB SL PRN (16:35)
[2018-11-17] MEDS: PENICILLIN V POTASSIUM 250 MG TAB PO SCH (20:30)
[2018-11-17] MEDS ORDERED: TRAZODONE HCL 100 MG TAB PO SCH (21:00)
[2018-11-17] MEDS ORDERED: PRAVASTATIN SOD 20 MG TAB PO SCH (21:00)
[2018-11-18 06:43] LABS: Hemoglobin 13.4 g/dL (14.0-18.0); Mean Corpuscular Hgb Conc 35.3 g/dL (32-36); Mean Corpuscular Volume 92.7 fL (80-100); Mean Platelet Volume 9.5 fL (7.4-10.4); Platelet Count 148 K/uL (130-400); RDW Coefficient of Variation 13.1 % (11.5-14.5); RDW Standard Deviation 44.4 fL (36.4-46.3); White Blood Count 6.55 K/uL (4.8-10.8)
[2018-11-18 07:14] LABS: BUN Creatinine Ratio 14.4 (10-20); Calcium 8.3 mg/dl (8.5-10.1); Est GFR (African American) 83.4; Potassium 4.1 mmol/L (3.5-5.1)
[2018-11-18] MEDS: PENICILLIN V POTASSIUM 250 MG TAB PO SCH (07:26)
[2018-11-18] MEDS ORDERED: CHOLECALCIFEROL 1,000 UNITS TAB PO SCH (09:00)
[2018-11-18] MEDS ORDERED: FLUOXETINE HCL 20 MG CAP PO SCH (09:00)
--- NOTE | 2018-11-18 09:28 | Cardiology Consultation ---
Date of Consultation November 18, 2018 Assessment & Plan (1) Exertional chest pain: The patient gives a history of exertional chest discomfort while shoveling snow prior to his presentation. Fortunately, there are no acute EKG changes in 3 troponin I levels were undetectable. Agree with proceeding with a stress echocardiogram. (2) Mixed hyperlipidemia: Continue pravastatin. (3) History of rheumatic fever as a child: Fortunately, the patient had no valvular abnormalities noted on echocardiogram performed in 2010. A repeat study will be done today. He remains on low-dose penicillin of which I question the utility. (4) RBBB (right bundle branch block): Has been present since 2010. History of Present Illness Attending Physician: Bright Bonilla DO History of Present Illness Mr. Garcia is a 68-year-old male admitted yesterday with a chest pain syndrome. This consultation was ordered with systems cardiac management. Of note, I met the patient December of 2016 for consultation regarding an abnormal EKG. The patient was in his usual state of health until November 16 when he developed left-sided chest discomfort while shoveling snow. The discomfort radiated to his left shoulder arm and was accompanied by dizziness. The patient denied shortness of breath, nausea, and vomiting concurrent with his chest discomfort. The patient stopped shoveling and then went into his home. The total duration of his chest discomfort was 60 minutes in length. The following day, the patient noted dizziness and exertional dyspnea when climbing up a steep flight of stairs. He then presented to the emergency room for further evaluation. The patient has a known right bundle-branch block for which she was seen in December 2016 as a cardiac consultation. He does have a history of rheumatic fever as a child. He had a stress test performed in 2010 which was normal. Baseline echocardiogram noted no evidence of valvular heart disease. Currently, patient is resting comfortably complaints of chest pain or dyspnea. His medications reviewed in detail. Past medical and surgical history 1. Hypercholesterolemia 2. Right bundle-branch block 3. Hyperglycemia 4. Depression 5. Rosacea 6. Vitamin-D deficiency 7. Seasonal allergies 8. 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 Developed coronary disease at age 65. Siblings are healthy 9. History of rheumatic fever Review of systems A 10 point review of systems was undertaken and negative except for that described above. Allergies Allergy/AdvReac Type Severity Reaction Status Date / Time No Known Allergies Allergy Unverified 11/17/18 15:04 Home Medications Home Medications Medication Instructions Recorded Confirmed Type aspirin 325 mg PO HS 11/17/18 11/17/18 History cholecalciferol (vitamin D3) 5,000 unit PO QAM 11/17/18 11/17/18 History [Vitamin D3] fluoxetine 20 mg PO QAM 11/17/18 11/17/18 History penicillin V potassium 250 mg PO BID 11/17/18 11/17/18 History pravastatin 20 mg PO HS 11/17/18 11/17/18 History trazodone 200 mg PO HS 11/17/18 11/17/18 History Patient History Medical History Depression History of rheumatic fever as a child Hyperlipidemia Insomnia Lower urinary tract symptoms (LUTS) Rosacea Vitamin D deficiency Surgical History Status post total right knee replacement Family History Mother Colon cancer Father CAD (coronary atherosclerotic disease) S/P CABG (coronary artery bypass graft) Prostate cancer Uncle CAD (coronary atherosclerotic disease) S/P CABG (coronary artery bypass graft) Social History Current Living Situation: Spouse Other Information That Helps Us Care for You: No Feels Safe at Home: Yes Safety Concerns: Feels Safe At This Time Smoking Status: Never smoker Do You Dip or Chew Tobacco: No Hx Alcohol Use: Yes Alcohol Intake Frequency: holidays/special occasions only Hx Substance Use: No Beliefs That Will Affect Care: None Preferred Language: Cymraes Communication Ability: Effective 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 HEENT exam is negative. Neck is supple with full carotid upstrokes. There are no carotid bruits. Jugular venous pressure is flat at 90. There is no thyromegaly. Cardiovascular exam reveals a regular rhythm with a normal S1 and S2. No S3, S4, or murmurs are noted. Lungs are clear without rales, rhonchi, or wheezes. Abdomen is soft and nontender without bruits. Extremities reveal intact radial artery and posterior tibial pulses bilaterally. There is no peripheral edema. Results & Data Laboratory Results CBC notes hemoglobin of 13.4, hematocrit 30.0, white count 6.5, and a platelet count [id number]. Electrolytes notice sodium 136, potassium 4.1, chloride 105, bicarb 20, BUN 15, creatinine 1.07, and glucose of 83. Three troponin I levels are undetectable. INR is 1.1. EKG notes sinus bradycardia with a complete right bundle-branch block. Chest x-ray notes no acute disease. Diagnostic Findings EKG notes sinus bradycardia with a complete right bundle-branch block. Chest x- ray notes no acute disease.
--- NOTE | 2018-11-18 13:24 | Discharge Summary ---
Date of Service November 18, 2018 Admission HPI Per Admitting Provider Mr. Garcia is a 67 y/o male with PMHx of Hyperlipidemia, Depression, Childhood Rheumatic Fever, and Vitamin D Deficiency who presents to the ED c/o chest pain. Patient reports this started yesterday while shoveling snow. He developed a centralized chest pain with radiation into the L shoulder and down the arm. This was associated with dyspnea and dizziness. He states he then stopped shoveling and went in the house to rest. States the pain gradually decreased and resolved within an hour. He reports feeling fine the rest of the evening. Today, [facility] when he developed dizziness and shortness of breath upon getting towards the top steps. He states he would have twinges of chest pain during this time and this too would resolve upon resting. Currently he is not experiencing any chest pain while in the ED. EKG with sinus bradycardia with RBBB and an age indeterminant septal infarct which EKG very similar to one in [employer] from 2017. No ischemic findings noted and initial troponin negative. Per medical record it is noted that he had hyperglycemia however recent A1c is 5. Lipid panel recently checked and WNL and currently on statin therapy. He appears to have good blood pressure control and is very active. No cigarette/tobacco use, minimal glass of wine drinker, no illegal drugs. He does appear to have minimal risk factors however story very consistent with a possible anginal pain. He does report a significant FMHx of cardiac disease to include his father and uncles with CAD requiring CABG. Otherwise, states he has been in his normal state of health only reporting a respiratory illness around [place] requiring a Zpak but no other recent or current illnesses. Principal Diagnosis Chest Pain with Exertion Discharge Exam Constitutional well developed, well nourished and + thin; no acute distress and not ill appearing Eyes + anicteric sclerae ENMT Ears: no hearing impairment Throat: uvula midline Neck trachea midline Respiratory normal respiratory effort, lungs clear to auscultation Cardiovascular Rate/Rhythm: regular rate and regular rhythm Heart Sounds: no murmur Extremities: no edema Gastrointestinal (Abdomen) Inspection/Auscultation: normal bowel sounds Percussion/Palpation: abdomen soft; abdomen nontender Musculoskeletal Head/Neck/Chest: normocephalic, head atraumatic and neck supple Extremities: no cyanosis and no clubbing Skin no rashes, warm and dry Neurologic moves all extremities Psychiatric A+Ox3, euthymic affect Discharge Data Allergies Allergy/AdvReac Type Severity Reaction Status Date / Time No Known Allergies Allergy Unverified 11/17/18 15:04 Consultations 11/17/18 14:02 ED Decision to Admit Stat 11/17/18 16:35 Consult Cardiology Routine Hospital Course (1) Exertional chest pain: - Experienced CP with exertion with [place]ing [place] - associated dypnea and lightheadedness - Risk factors are relatively few - A1c is 5, no HTN, no tobacco/cigarette use, very active, cholesterol controlled - does have a significant FMHx of CAD/CABG; age and gender are factors - EKG with sinus earl and chronic RBBB and appears similar to EKG from 2017 - no ischemic findings - Serial cardiac enzymes are WNL - Stress echo performed without abnormal findings - no ischemic findings or reproduced chest discomfort - Continue home ASA 325 mg HS - Obtained cardiology consultation given the convincing story for angina - no intervention is necessary at this time - Did advise patient to still seek medical help if he continues to have this recurring pain even though he did undergo stress testing (2) Mixed hyperlipidemia: - Recent assessment of lipid panel and will not repeat - WNL - Continue Pravastatin 20 mg HS (3) History of rheumatic fever as a child: - Reports no long-term heart effects - Continue prophylactic treatment with penicillin V 250 mg BID (4) Depression: - Follows with Dr. Noriega - Fluoxetine 20 mg daily (5) Insomnia: - Trazodone 200 mg HS (6) Vitamin D deficiency: - Recent assessment was low - continue Vitamin D3 5000 units daily Total Time Total Time Spent Total Time Spent (In Minutes): Greater than 30 minutes Discharge Plan Discharge Items Patient Disposition: Home - Self-Care Reason For Visit: CHEST PAIN WITH EXERTION Discharge Diagnosis: Chest Pain Condition: Fair Discharge Goals: Decrease discomfort and Improve disease control Activity: Resume your previous activity Non-emergency contact: Primary Care Provider Call non-emergency contact if: you have any medication questions Follow-up/Referrals: Stephanie Onofre MD [Primary Care Provider] - Diet: Heart Healthy Addtl Provider Instructions: Exertional Chest Pain: - Thankfully your cardiac markers (troponins) are negative and the EKG (this measures the electrical rhythm of your heart) does not show signs of ischemia or lack of blood flow to the heart muscle. - You underwent a stress test today that did not reproduce your chest pain or show signs of ischemia or issues with how the heart is pumping or moving when you are exerting yourself. - Could this be musculoskeletal given you were removing snow which possibly irritated things that lead to your symptoms the following day. Sometimes we don' t have a good explanation for the symptoms. - However, it is always important to get checked out if this pain would happen again. - With time we will all gradually get plague in our blood vessels. Some preventative measures would be to stay physically active and eat a well balanced diet. Avoid high fatty foods and focus on good fats such as fish and nuts. Continuing your cholesterol medication and to continue to monitor your cholesterol routinely with your family doctor. Home Medications: - Continue home medications as previously prescribed. We did not make any adjustments to these. Prescriptions: Continue aspirin 325 mg Tablet 325 mg PO HS RF: 0 trazodone 100 mg Tablet 200 mg PO HS RF: 0 pravastatin 20 mg Tablet 20 mg PO HS RF: 0 fluoxetine 20 mg Capsule 20 mg PO QAM RF: 0 cholecalciferol (vitamin D3) [Vitamin D3] 5,000 unit Tablet 5,000 unit PO QAM RF: 0 penicillin V potassium 250 mg Tablet 250 mg PO BID RF: 0 Stand-Alone Forms: Call Back Authorization, [facility] Discharge Orders: Discharge Order (Routine); Ordered 11/18/18 Ordered By: Zunilda Soares Admission Data Admit Date/Time: 11/17/18 16:04 Attending Provider: Bright Bonilla Admit Provider: Bright Bonilla Primary Care Provider: Stephanie Onofre Other Providers: Alejandro Govea Alexander W. Service: Telemetry Other Interventions: Discharge Summary Assessment (RN) Last Done: 11/18/18 11:29 DC Date/Time DO NOT enter until pt leaves facility: 11/18/18 12:01
[2018-11-18] MEDS ORDERED: ASPIRIN 325 MG ECTAB PO SCH (21:00)
== END 2018-11-18 12:01 | disposition home or self-care (01) ==
LOC: 2E 12:49 → ED 12:49 → 2E 16:34

== ENCOUNTER 2025-03-09 05:51 | Inpatient (IN) ==
--- NOTE | 2025-03-01 08:57 | Anesthesiology Consultation ---
Date of Service March 01, 2025 Assessment & Plan (1) Encounter for pre-operative examination: Infectious disease screening: Per assessment on 02/25/25- No known recent infectious disease contacts or current infectious disease symptoms. Chart Review Chart Review: Acceptable Risk for Surgery and Patient NOT seen in Pre Admission Testing History Surgery Operation Date: 03/09/25 09:50 Proposed Procedures p Robotic assisted Laparoscopic Radical Retropubic Prostatectomy, Possible Open, Possible Pelvic Lymph Node Dissection - Abelardo Torrez MD Height/Weight Height: 6 ft Weight: 81.647 kg Allergies Allergy/AdvReac Type Severity Reaction Status Date / Time latex Allergy Mild Itchy Verified 03/01/25 10:35 ("latex tape only") escitalopram [From Lexapro] AdvReac Intermediate Constipation, Verified 03/01/25 10:35 "made me feel like I was in a fish bowl" mirtazapine [From Remeron] AdvReac Intermediate Constipation, Verified 03/01/25 10:35 "made me feel like I was in a fish bowl" sertraline [From Zoloft] AdvReac Intermediate Constipation, Verified 03/01/25 10:35 "made me feel like I was in a fish bowl" Medications Home Medications Medication Instructions Recorded Confirmed Last Taken cholecalciferol (vitamin D3) 125 5,000 unit PO QAM #30 tabs 03/28/19 02/25/25 09/18/23 mcg (5,000 unit) tablet (Vitamin D3) folic acid 400 mcg tablet 400 mcg PO QAM 04/04/20 02/25/25 09/18/23 coenzyme Q10 200 mg capsule (Co 200 mg PO QAM 12/19/21 02/25/25 09/18/23 Q-10) psyllium husk 3.4 gram/5.4 gram 1 tbsp PO HS 03/04/23 02/25/25 09/17/23 oral powder (Metamucil) pravastatin 20 mg tablet 20 mg PO QPM #90 tabs 03/17/24 02/25/25 Unknown aspirin 325 mg tablet,delayed 325 mg PO DAILY 04/08/24 02/25/25 Unknown release (Ecotrin) amoxicillin 500 mg capsule 2,000 mg (4 x 500 mg) PO UD PRN 07/15/24 02/25/25 Unknown prior to dental appt #4 caps trazodone 100 mg tablet 300 mg (3 x 100 mg) PO HS #270 tabs 10/02/24 02/25/25 Unknown tamsulosin 0.4 mg capsule (Flomax) 0.4 mg PO HS 90 days #90 caps 10/05/24 02/25/25 Unknown penicillin V potassium 250 mg 250 mg PO BID #180 tabs 10/16/24 02/25/25 Unknown tablet lorazepam 0.5 mg tablet 0.5 mg PO UD anxiety 02/25/25 02/25/25 Unknown metoprolol succinate 25 mg 12.5 mg PO QAM 02/25/25 02/25/25 Unknown tablet,extended release 24 hr spironolactone 50 mg tablet 50 mg PO BID 02/25/25 02/25/25 Unknown Past Medical History Medical History BPH w urinary obs/LUTS Depression with anxiety History of basal cell carcinoma left ear and nose History of CVA (cerebrovascular accident) Hx "Pin stroke" 5+ years ago History of rheumatic fever as a child Per [facility] PCP visit 10/16/24, "He has a h/o rheumatic fever as a child. He has been on daily penicillin for many years and he prefers to stay on this indefinitely." Hyperlipidemia Insomnia Prostate cancer RBBB Rosacea Severe obstructive sleep apnea Unable to tolerate CPAP Past Family History Family History Mother Colon cancer Lung cancer Malignant neoplasm of intestine Hypertension Stroke Father Prostate cancer CAD (coronary atherosclerotic disease) Myocardial infarction S/P CABG (coronary artery bypass graft) Hypertension Uncle CAD (coronary atherosclerotic disease) Myocardial infarction S/P CABG (coronary artery bypass graft) Grandfather (Paternal) Colon cancer Myocardial infarction Grandmother (Paternal) Ovarian cancer Grandmother (Maternal) Congestive heart failure Myocardial infarction Grandfather (Maternal) Respiratory failure Other Coronary heart disease No family history of adverse response to anesthesia Denies family history of Breast cancer Past Surgical History Surgical History History of colonoscopy History of decompression of ulnar nerve right side History of mandibular surgery (1969) wired shut to fix overbite History of right knee joint replacement Partial per patient (2012) History of surgery on arm (2019) ORIF right radius/ulna fracture- hardware in place History of tonsillectomy and adenoidectomy (1958) History of wisdom tooth extraction Status post Mohs surgery for basal cell carcinoma x2 Social History Smoking Status: Never smoker Do You Dip or Chew Tobacco: No Hx Alcohol Use: Yes Alcohol type: wine alcohol intake frequency: other Alcohol Intake Frequency Comment: quit 3 years ago Hx Substance Use: No substance use type: does not use Lab Results Anesthesia Preop Results Results Anesthesia Widget: WBC 6.63 K/ul (4.8-10.8) 02/26/25 Hgb 14.0 g/dl (14.0-18.0) 02/26/25 Hct 39.9 % (42.0-52.0) L 02/26/25 Plt 198 K/uL (130-400) 02/26/25 Na 138 mmol/L (136-145) 02/26/25 K 4.1 mmol/L (3.5-5.1) 02/26/25 Cl 105 mmol/L (98-107) 02/26/25 CO2 32 mmol/L (21-32) 02/26/25 BUN 21 mg/dl (6-23) 02/26/25 Creat 1.28 mg/dl (0.6-1.4) 02/26/25 Glucose Level 92 mg/dl (70-99(Fasting)) 02/26/25 Testing Laboratory Results Urine culture (02/26/25): no growth Electrocardiogram Date: 02/26/25 NSR at 63bpm. RBBB. No significant change compared to 03/04/2023 per geospatial developer comparison. Chest X-Ray Date: 02/26/25 FINDINGS: No focal lung consolidation. No pneumothorax or pleural effusion. Normal heart size. Left-sided aortic arch contains atherosclerotic calcification. Midline trachea. No acute osseous abnormality. The included upper abdomen is unremarkable. IMPRESSION: No acute cardiopulmonary findings. Stress Test Date: 05/27/23 Negative exercise stress echo/ecg for ischemia at 80% MPHR. 10.1 METS. No exercise induced chest pain. Baseline Echo with normal LV function. LVEF 60%.
[2025-03-09] MEDS: LACTATED RINGER'S 1,000 ML IV SCH (06:37)
[2025-03-09] MEDS: HEPARIN SOD 5,000 UNIT/0.5 ML VIAL SQ SCH ×2 (06:37→20:30)
[2025-03-09] MEDS: LR 15ML/HR IV SCH (06:37)
[2025-03-09] MEDS ORDERED: ATROPINE SULFATE 0.1 MG/ML 10ML SYR IV PRN (07:01)
[2025-03-09] MEDS ORDERED: fentaNYL citrate PF 100 MCG/2 ML VIAL IV PRN (07:01)
[2025-03-09] MEDS ORDERED: ePHEDrine sulfate 50 MG/ML AMP IV PRN (07:01)
[2025-03-09] MEDS ORDERED: ONDANSETRON INJ 2 MG/ML 2 ML VIAL IV PRN (07:01)
[2025-03-09] MEDS ORDERED: ROCURONIUM BROMIDE 10 MG/ML 5 ML VIAL IV ONE ×3 (07:04→09:37)
[2025-03-09] MEDS ORDERED: LIDOCAINE 2% 2 ML VIAL/AMP(20MG/ML) INFIL ONE (07:04)
[2025-03-09] MEDS ORDERED: DEXAMETHASONE SOD INJ 4 MG/ML VIAL ONE (07:04)
[2025-03-09] MEDS ORDERED: ONDANSETRON INJ 2 MG/ML 2 ML VIAL ONE (07:04)
[2025-03-09] MEDS ORDERED: PROPOFOL IV EMULSION 10 MG/ML 20 ML VIAL IV ONE ×2 (07:04→10:20)
[2025-03-09] MEDS ORDERED: fentaNYL citrate PF 100 MCG/2 ML VIAL ONE ×2 (07:05→08:11)
[2025-03-09] MEDS ORDERED: MIDAZOLAM HCL 1 MG/ML 2ML VIAL ONE (07:05)
--- NOTE | 2025-03-09 07:25 | History & Physical Bridge Note ---
Date of Service March 09, 2025 History & Physical Bridge Note I have examined the patient, reviewed the History & Physical and in the interval since the performance of the History & Physical I have noted the following changes of clinical significance: no changes noted
[2025-03-09] MEDS ORDERED: ePHEDrine sulfate 50 MG/5 ML SYR ONE (07:51)
[2025-03-09] MEDS: ceFAZolin 2000MG 2,000 MG/15 ML SYR IV SCH ×2 (07:55→13:28)
[2025-03-09] MEDS: SURGICEL ABSORB HEMOSTAT 2IN X 14IN TOP ONE (08:56)
[2025-03-09] MEDS ORDERED: ACETAMINOPHEN 1000 MG/100 ML IV IV ONE (10:12)
[2025-03-09] MEDS ORDERED: SUGAMMADEX SODIUM 200 MG/2 ML VIAL IV ONE (10:18)
[2025-03-09] MEDS ORDERED: KETOROLAC 30 MG/ML VIAL ONE (10:23)
[2025-03-09] MEDS: BUPIVACAINE 0.5 % 5 MG/1 ML MPF 30ML VIAL ONE (10:40)
[2025-03-09] MEDS: BUPIVACAINE LIPOSOME 1.3% 266 MG/20 ML VIAL ONE (10:41)
--- NOTE | 2025-03-09 10:49 | Operative Report ---
PG Post Operative Report Pre & Post Diagnosis Operation Date: 03/09/25 07:30 Pre-Op Diagnosis: Malignant Neoplasm Prostate Elevated PSA Post-Op Diagnosis: Malignant Neoplasm Prostate Elevated PSA I identified the patient and participated in the time-out.: Yes Procedure Operation Date: 03/09/25 07:30 Actual Procedures p Robotic Assisted Laparoscopic Radical Retropubic Prostatectomy, Pelvic Lymph Node Dissection(Not Applicable) - Abelardo Torrez MD Surgeon Abelardo Torrez MD Account Analyst Jennifer Martini Estimated Blood Loss 100 Findings Consistent with Post-Op Diagnosis Specimens 1. Periprostatic fat 2. Left pelvic lymph nodes 3. Right pelvic lymph nodes 4. Prostate and seminal vesicles Description of Procedure The patient was identified in the preoperative holding area, appropriate informed consents were reviewed and completed, and he was transported to the operating suite. Subcutaneous heparin was administered in the pre-operative holding area. Upon arrival in the operating suite, he received appropriate antibiotics and general anesthesia. He was positioned in dorsal lithotomy, a B&O suppository was inserted after digital rectal exam, and he was prepped and draped in standard fashion. A Hook catheter was inserted in the sterile field. A Veress needle was passed per umbilicus with uniform insufflation of the abdomen to 15mmHg. He was placed in steep Trendelenburg position. A periumbilical incision was then made to accommodate a 12mm Visiport with 10mm 0degree laparoscope. Inspection of the abdomen was carried out, and there was no evidence of traumatic entry or injury secondary to the Veress needle. After confirming a clear anterior abdominal wall, ports were subsequently placed in standard robotic prostatectomy fashion without incident. To begin the robotic portion of the case, the left lateral aspect of the sigmoid was mobilized off of the left pelvic side wall to allow the pouch of Abhi to be appropriately visualized. I then made an incision in the pouch of Abhi, overlying the seminal vesicles. Both SVs as well as the ampullae of the vasa were entirely dissected, with the vasa transected 3cm from the prostate. The medial umbilical ligaments were then controlled with bipolar electrocautery just inferior to the umbilicus. Following cauterization, they were divided utilizing monopolar cautery. A peritoneal incision was carried from this location to the medial aspect of the internal inguinal rings bilaterally with care to avoid opening through the ring. This incision was concluded when the vas deferens was reached. Dissection of the bladder and prostate off of the posterior aspect of the pubic arch was completed allowing full visualization of the prostate. The fat overlying the prostate was removed en bloc and passed off the table as a specimen labeled "periprostatic fat". The endopelvic fascia was cleared during this portion of the procedure, and subsequently opened - first on the right and then the left. The incision through the endopelvic fascia began near the prostate-bladder junction and was carried to the apex with extreme care to preserve all lateral levator musculature as well as the periurethral musculature and sphincter complex. I additionally preserved the puboprostatic ligaments. I then controlled the DVC with a 3-0 V-lock suture in overlapping/figure of 8 fashion. The lymph node dissection was then conducted. External iliac vessels were identified on the pelvic side wall. The packet of fat and lymphatic tissue that resides just under the iliac vein was elevated and off of the vein with a split and roll technique. The packet was dissected laterally to the circumflex vein and distally to the obturator nerve which was preserved. The proximal aspect of the packet was carried towards the bifurcation of the iliac vessels. A combination of monopolar and bipolar cautery were used to assist with control. After completing the dissection on both sides, the packets were collected and passed off of the table as specimens labeled "pelvic lymph nodes". My attention then returned to the prostate, with identification of the bladder neck aided by gentle traction on the Hook catheter and lateral to medial pressure at the presumed level of the bladder neck with the robotic instruments. An anterior cystotomy was made, the Hook balloon deflated and the catheter guided through the incision to allow anterior retraction. I attempted to preserve maximal bladder neck musculature as I circumferentially dissected around the bladder neck. Of note, he has a small intravesical median lobe. I used care to dissect around this without drastically thinning the bladder neck. After incision through the posterior aspect of the mucosa, the dissection was carried through detrusor muscle until the bilateral ampullae of the vasa were identified. The previously dissected vasa and SVs were brought through the incision and used to elevated the prostate anteriorly. A posterior plane behind the prostate was then developed - splitting Denonvilliers's fascia. This dissection was carried as far as possible towards the apex as well as far as possible laterally. An incision in the lateral prostatic fascia was then made bilaterally to facilitate control of the vascular pedicles and preservation of the nerve bundles. Vasculature running along the posterior/lateral aspect of the prostate was preserved as well as the tissue containing the nerves. Of note, I performed slightly more aggressive nerve dissection on the left than the right, the right side was the location of his positive pathology on biopsy. The pedicles were then controlled with a series of Weck clips. The apical attachments of the prostate were remaining at that stage. The DVC was divided after control with bipolar cautery over the prostate. Continuous inspection from anterior and lateral views allowed me to closely follow the apical contour of the prostate and maximally preserve urethral length and tissue. The prostate was entirely freed at that point, and collected in an EndoCatch bag before being moved out of the field of vision. Hemostasis was confirmed and anastomosis of the bladder and urethra was completed utilizing a double armed V- Lock stitch. A new Hook catheter was inserted and the anastomosis tested with irrigation. Of note, there was a slight leak on the posterior aspect of the anastomosis, I attempted to close this with an additional single stitch, however there was still some persistence of the leak and I elected to leave it. Will plan for cystogram and catheter removal late next week. A korina style stitch was placed bilaterally to functionally marsupialize the area of the lymph node dissection. The robot was undocked, the specimen extracted through expansion of the divya- umbilical camera port. The fascia was closed with a series of 0-PDS figure of 8 stitches. All incisions were infiltrated with an Exparel Marcaine mix. Monocryl was used to close all skin incisions. All wounds were dressed with Dermabond. The case was concluded and the patient taken to the PACU in stable condition. Jennifer Martini assisted from incision to closure. I attest to the content of the Intraoperative Record and any orders documented therein. Any exceptions are noted below.
--- NOTE | 2025-03-09 11:20 | Anesthesiology Progress Note ---
Date of Service March 09, 2025 Anesthesia Post Procedure Vital Signs Vital Signs: Temp Pulse Resp BP Pulse Ox O2 Del Method 03/09/25 06:00 36.7 C 62 18 140/80 95 Room Air Transfer of Care Handoff Completed per policy Notes Mental Status: alert / awake / arousable Patient Amnestic to Procedure: Yes Nausea / Vomiting: adequately controlled Pain: adequately controlled Airway Patency, RR, SpO2: stable & adequate BP & HR: stable & adequate Hydration State: stable & adequate Anesthetic Complications: no major complications apparent and Pt Satisfied with anesthetic care
[2025-03-09 11:28] LABS: Hematocrit (blood only) 36.1 % (42.0-52.0); Mean Corpuscular Volume 91.6 fL (80.0-100.0); Mean Platelet Volume 8.9 fL (9.4-12.4); Platelet Count 151 K/uL (130-400); RDW Coefficient of Variation 12.7 % (11.5-14.5); RDW Standard Deviation 42.5 fL (36.4-46.3); Red Blood Count 3.94 M/uL (4.70-6.10); White Blood Count 10.58 K/ul (4.8-10.8)
[2025-03-09 11:44] LABS: BUN Creatinine Ratio 14.8 (10-20); Calcium 8.5 mg/dl (8.6-10.3); Creatinine Clr Calc Pharmacy 57.3 ml/min; Potassium 4.3 mmol/L (3.5-5.1)
[2025-03-09 11:52] LABS: Basophils # (auto) 0.02 K/uL (0.00-0.20); Basophils % (auto) 0.2 %; Immature Granulocytes # (auto) 0.11 K/uL (0.01-0.20); Lymphocytes # (auto) 0.41 K/uL (1.20-3.40); Lymphocytes % (auto) 3.9 %; Monocytes # (auto) 0.09 K/uL (0.11-0.59); Monocytes % (auto) 0.9 %; Neutrophils # (auto) 9.95 K/uL (1.40-6.50); Polychromasia 1+
[2025-03-09] MEDS ORDERED: oxyCODONE HCL IR 5 MG TAB (IMMEDIATE RELEASE) PO PRN ×2 (12:01)
[2025-03-09] MEDS ORDERED: MoRPHine SULFATE 2 MG/ML CARP IV PRN ×2 (12:01)
[2025-03-09 12:23] VITALS: RESP 16
[2025-03-09] MEDS: SODIUM CHLORIDE 0.9% 1,000 ML IV SCH (12:35)
[2025-03-09] MEDS: ACETAMINOPHEN 325 MG TAB PO PRN (12:47)
[2025-03-09] MEDS: DOCUSATE SODIUM 100 MG CAP PO SCH (20:30)
[2025-03-09] MEDS: traZODone HCL 100 MG TAB PO SCH (20:31)
[2025-03-09] MEDS: SPIRONOLACTONE 25 MG TAB PO SCH (20:31)
[2025-03-09] MEDS: PRAVASTATIN SOD 20 MG TAB PO SCH (20:31)
--- NOTE | 2025-03-10 07:58 | Urology Progress Note ---
Date of Service March 10, 2025 Assessment & Plan (1) Prostate cancer: Plan: Postop day #1 status post robotic prostatectomy Recovery very much on pace Plan for drain removal and discharge home later today Advance diet Admission and Anticipated Discharge Date Admission Date: March 09, 2025 Subjective Doing great overall No pain Has been ambulatory Moving some flatus Physical Exam Physical Exam: Incisions all appropriate, ecchymosis around the umbilical extraction site, serosanguineous drainage from the draining clear urine Results & Data Vital Signs (Past 12 Hours) Vital Signs Temp Pulse Pulse Resp BP Pulse Ox O2 Del Method 03/10/25 07:27 36.8 C 65 16 124/66 97 Room Air 03/10/25 03:14 36.3 C L 67 16 109/64 96 Room Air 03/09/25 23:12 36.5 C 60 16 130/70 98 Room Air PG Care Time/CCT Total # of Minutes Spent Total Time Spent with Patient: Total time spent is greater than 50% in coordination of care (as documented) at patient's floor/unit and/or counseling patient: Coding Level of Care Code None Diagnoses Prostate cancer C61
[2025-03-10 08:30] LABS: Basophils # (auto) 0.01 K/uL (0.00-0.20); Basophils % (auto) 0.1 %; Eosinophils # (auto) 0.02 K/uL (0.00-0.50); Eosinophils % (auto) 0.2 %; Hematocrit (blood only) 34.4 % (42.0-52.0); Hemoglobin 12.2 g/dl (14.0-18.0); Immature Granulocytes # (auto) 0.04 K/uL (0.01-0.20); Immature Granulocytes % (auto) 0.5 %; Lymphocytes # (auto) 1.11 K/uL (1.20-3.40); Lymphocytes % (auto) 12.7 %; Mean Corpuscular Hemoglobin 32.6 pg (25.0-34.0); Mean Corpuscular Hgb Conc 35.5 g/dL (32.0-36.0); Mean Platelet Volume 9.3 fL (9.4-12.4); Monocytes # (auto) 0.31 K/uL (0.11-0.59); Monocytes % (auto) 3.5 %; Neutrophils # (auto) 7.26 K/uL (1.40-6.50); Platelet Count 161 K/uL (130-400); RDW Standard Deviation 43.8 fL (36.4-46.3); Red Blood Count 3.74 M/uL (4.70-6.10); White Blood Count 8.75 K/ul (4.8-10.8)
[2025-03-10] MEDS: METOPROLOL SUCC 25MG EXT REL TAB PO SCH (08:37)
[2025-03-10 08:50] LABS: BUN Creatinine Ratio 12.5 (10-20); Calcium 8.3 mg/dl (8.6-10.3); Creatinine Clr Calc Pharmacy 61.1 ml/min; Potassium 4.5 mmol/L (3.5-5.1)
[2025-03-10 11:19] VITALS: O2SAT 96
[2025-03-10 12:05] VITALS: TEMP 98.4
[2025-03-10] MEDS: ONDANSETRON INJ 2 MG/ML 2 ML VIAL IV PRN (13:23)
[2025-03-10 13:39] VITALS: BP 127/75; PULSE 67
--- NOTE | 2025-03-10 16:12 | Discharge Summary ---
Date of Service March 10, 2025 Admission HPI Per Admitting Provider 74-year-old male with prostate cancer here for robotic prostatectomy Admission Exam Per Admitting Provider Constitutional well developed and well nourished Neck neck nontender Respiratory normal respiratory effort; no respiratory distress and does not use accessory muscles Cardiovascular Rate/Rhythm: regular rate Vessels: radial pulses present Extremities: no edema Gastrointestinal (Abdomen) Inspection/Auscultation: abdomen normal to inspection Percussion/Palpation: abdomen soft; abdomen nontender and no guarding Musculoskeletal Head/Neck/Chest: normocephalic and head atraumatic Extremities: extremities normal to inspection Skin no rashes and no lesions Trauma: no evidence of skin trauma Neurologic awake; not obtunded Speech / Cognition: normal speech Motor/Sensory: no tremor Psychiatric Orientation: alert and oriented x 3 Genitourinary no CVA tenderness Lymphatic no lymphadenopathy Principal Diagnosis Prostate cancer Discharge Exam Constitutional no acute distress Respiratory no respiratory distress and no labored breathing Gastrointestinal (Abdomen) Incisions appropriate. GOOD with minimal serosanguineous drainage. Musculoskeletal Head/Neck/Chest: normocephalic Neurologic moves all extremities and awake Psychiatric A+Ox3, euthymic affect Genitourinary Hook draining clear yellow urine Discharge Data Allergies Allergy/AdvReac Type Severity Reaction Status Date / Time latex Allergy Mild Itchy Verified 03/09/25 05:58 ("latex tape only") escitalopram [From Lexapro] AdvReac Intermediate Constipation, Verified 03/09/25 05:58 "made me feel like I was in a fish bowl" mirtazapine [From Remeron] AdvReac Intermediate Constipation, Verified 03/09/25 05:58 "made me feel like I was in a fish bowl" sertraline [From Zoloft] AdvReac Intermediate Constipation, Verified 03/09/25 05:58 "made me feel like I was in a fish bowl" Procedures Performed Operation Date: 03/09/25 07:30 Actual Procedures p Robotic Assisted Laparoscopic Radical Retropubic Prostatectomy, Pelvic Lymph Node Dissection(Not Applicable) - Abelardo Torrez MD Hospital Course (1) Prostate cancer: Plan 74-year-old male admitted status post robotic prostatectomy with Dr. Torrez. Patient tolerated procedure well. No acute issues postoperatively. He remained afebrile and hemodynamically stable. Labs appropriate. Hook draining clear yellow urine. GOOD drain with minimal serosanguineous drainage. Patient tolerated diet. Ambulated without issue. Reported minimal pain. GOOD drain to be removed prior to discharge. He was discharged home on postop day #1 with a Hook catheter in place. He was in stable condition at time of discharge. Discharge instructions reviewed and all questions were answered. Total Time Total Time Spent Total Time Spent (In Minutes): 15 Discharge Plan Discharge Items Patient Disposition: Home - Self-Care Reason For Visit: Malignant Neoplasm Prostate Elevated PSA Discharge Diagnosis: Prostate Cancer Condition on Discharge: Good Activity: Per Instructions section Lifting: No more than 10 pounds Bathing Comment: Okay to shower. No tub baths or soaks. Sexual Activity: Wait until after follow-up appointment Exercise/Sports: Wait until after follow-up appointment Driving/Machine Use: Do not drive if taking prescription pain medication. Non-emergency contact: Surgeon and Urologist Call non-emergency contact if: you have any medication questions, your pain is not controlled, you have a fever, your temperature is above 101, your wound has increased redness, your wound has increased drainage and your wound pain has increased Follow-up/Referrals: Abelardo Torrez MD [Physician] - Stephanie Onofre MD [Primary Care Provider] - Diet: Regular Addtl Attending Provider Instructions: Please take all medications as prescribed and keep all follow-ups as scheduled. Please call our office at [phone] with any questions, concerns or need to reschedule appointments for any reason. We are happy to assist you We have sent an antibiotic to your pharmacy of choice. Please begin antibiotic as prescribed the day BEFORE your scheduled voiding trial at [facility]. Please continue antibiotic every 12 hours through the day AFTER your voiding trial. Activity: We recommend having someone with you for the first few days after surgery to help care for you. For the first 2 weeks after surgery, we would like you to get up and walk around your house. However, we recommend limit physical activity that would increase your heart rate. This will allow your body to rest and heal. Take naps if you feel tired. Don't lift anything heavier than 10 pounds, mow the law or ride a bicycle until your follow-up appointment. Please avoid long car rides. Home Care: Unless directed otherwise, drink 6 to 8 glasses of water a day (enough to keep your urine light colored). This will also help keep a healthy flow of urine. We recommend using a stool softener for the first two weeks to avoid constipation. Hook Catheter or Suprapubic Catheter care: Keep the catheter well secured with either a leg back or leg strap with large bag. Empty your bag when it's about half full. You may notice some blood in the bag. This is normal after surgery and while the catheter is in place. Use mild soap (such as Dove or Dial) and water to wash the catheter and the head of your penis daily, or more frequently if needed. Return to your normal diet, we encourage good protein intake to promote healing. You may shower as normal. Please avoid tub baths or soaking until catheter removed and incisions well healed. Wearing sweat pants while you have the catheter is recommended, they will be more comfortable. Follow-up Your follow up appointments for having your catheter removed, and follow up with your physician should already be scheduled. If you have any questions regarding this, please contact our office. Your final pathology report will be discussed at your physician follow-up appointment. Call [facility] [place] at [phone] right away if you have any of the following: Chest pain or trouble breathing (call [phone] or go to the hospital) Fever of 101F or higher, uncontrolled vomiting Heavy bleeding, clots, or bright red blood from the catheter Catheter that falls out or stops draining Foul-smelling discharge from your catheter Redness, swelling, warmth, or increased pain at your incision site Drainage, pus, or bleeding from your incision Pending Studies at Discharge: Yes (Pathology) Stand-Alone Forms: [facility], Smoking Cessation Medications and DC Order Prescriptions: New ciprofloxacin HCl 500 mg tablet 500 mg PO BID 3 Days Qty: 6 0RF Rx Instructions: Start 1 day prior to catheter removal Continued pravastatin 20 mg tablet 20 mg PO QPM Qty: 90 3RF amoxicillin 500 mg capsule 2,000 mg PO UD PRN (Reason: prior to dental appt) Qty: 4 1RF Rx Instructions: 4 tabs 1 hour prior to appointment ; trazodone 100 mg tablet 300 mg PO HS Qty: 270 3RF tamsulosin [Flomax] 0.4 mg capsule 0.4 mg PO HS 90 Days Qty: 90 3RF aspirin [Ecotrin] 325 mg tablet,delayed release (DR/EC) 325 mg PO DAILY cholecalciferol (vitamin D3) [Vitamin D3] 5,000 unit tablet 5,000 unit PO QAM Qty: 30 0RF penicillin V potassium 250 mg tablet 250 mg PO BID Qty: 180 3RF folic acid 400 mcg Tablet 400 mcg PO QAM coenzyme Q10 [Co Q-10] 200 mg Capsule 200 mg PO QAM Metamucil 3.4 gram/5.4 gram Powder 1 tbsp PO HS Rx Instructions: mix into at least 8 oz of water or juice before administering spironolactone 50 mg Tablet 50 mg PO BID lorazepam 0.5 mg tablet 0.5 mg PO UD Rx Instructions: 0.5 mg am, 0.25 hs metoprolol succinate 25 mg tablet extended release 24 hr 12.5 mg PO QAM Discharge Orders: Discharge Order (Routine); Ordered 03/10/25 Ordered By: Jennifer Stuart/Other Patient Handouts: Urinary Catheter Bag Empty Clean Admission Data Admit Date/Time: 03/09/25 10:56 Attending Provider: Abelardo Torrez Admit Provider: Abelardo Torrez Primary Care Provider: Stephanie Onofre Other Interventions: Discharge Summary Assessment (RN) Last Done: 03/10/25 13:51 Coding Level of Care Code 43022 IN/OBS DISCH 30 MIN/LESS Diagnoses Prostate cancer C61
== END 2025-03-10 15:40 | disposition home or self-care (01) | DRG 708 ==
LOC: ASU 05:51 → INTOOBSV 10:56 → OBSVTOIN 10:56 → 3E 10:56